=== PATIENT | male | born 1955 | race Caucasian/White ===

== ENCOUNTER → 2020-05-20 | Outpatient (CLI) | payer BC, OTHER ==
[2020-05-21 10:14] LABS: CREATININE, URINE 141.8 mg/dL (Not Estab.)
== END ==
LOC: LAB 13:48
PROVIDERS: Internal Medicine Nephrology
DX: N18.9 Chronic kidney disease, unspecified (principal)
CPT/HCPCS: 80053; 81001; 82043; 82570; 84156

== ENCOUNTER → 2020-10-27 | Outpatient (CLI) | payer BC ==
[2020-10-28 09:13] LABS: CREATININE, URINE 152.2 mg/dL (Not Estab.)
== END ==
LOC: LAB 06:40
PROVIDERS: Internal Medicine Nephrology
DX: N18.9 Chronic kidney disease, unspecified (principal)
CPT/HCPCS: 36415; 80053; 81001; 82043; 82570; 84156

== ENCOUNTER → 2021-03-08 | Outpatient (CLI) | payer BC | LOC: LAB 08:02 | PROVIDERS: Internal Medicine Nephrology | DX: N18.9 Chronic kidney disease, unspecified (principal) | CPT/HCPCS: 36415; 80053; 81001; 82570; 84156 ==

== ENCOUNTER → 2021-09-16 | Outpatient (CLI) | payer OTHER, BC ==
[2021-09-17 21:12] LABS: CREATININE, URINE 253.5 mg/dL (Not Estab.)
== END ==
LOC: LAB 09:38
PROVIDERS: Internal Medicine Nephrology
DX: N18.9 Chronic kidney disease, unspecified (principal)
CPT/HCPCS: 81001; 82043; 82570; 84156